=== PATIENT | male | born 1985 | race Caucasian/White ===

== ENCOUNTER 2018-07-01 07:18 | Emergency (ER) | payer OTHER ==
[~2018-07-01] VITALS: Ht 172.7 cm; Wt 78.2 kg
[2018-07-01 07:32] VITALS: Ht 172.7 cm; Wt 78.2 kg
[2018-07-01] MEDS ORDERED: ZOVIRAX200 MG PO (07:44)
[2018-07-01] MEDS ORDERED: AMOXICILLIN875 MG PO (07:44)
[2018-07-01 07:59] VITALS: BP 142/78
== END 2018-07-01 08:01 | disposition home or self-care (01) ==
LOC: D.ER 07:18
DX: J02.0 Streptococcal pharyngitis (principal)